=== PATIENT | female | born 1950 | race Caucasian/White ===

== ENCOUNTER 2023-01-09 04:55 | Inpatient (IN) ==
[2023-01-03 13:04] LABS: Basophils # (Auto) 0.05 K/mcL (0.00-0.30); Eosinophils # (Auto) 0.15 K/mcL (0.00-0.70); Eosinophils % (Auto) 2.9 % (0.0-7.0); Hematocrit 39.3 % (34.1-44.9); Hemoglobin 12.9 g/dL (11.2-15.7); Lymphocytes # (Auto) 1.59 K/mcL (1.50-4.80); Lymphocytes % (Auto) 31.2 % (15.5-49.0); Mean Cell Volume 95.2 fL (80.0-100.0); Mean Corpuscular HGB Conc 32.8 g/dL (31.0-36.0); Mean Platelet Volume 9.3 fL (8.8-12.5); Monocytes # (Auto) 0.32 K/mcL (0.10-0.90); Monocytes % (Auto) 6.3 % (1.0-12.0); Neutrophils % (Auto) 58.4 % (38.0-78.0); Platelet Count 350 K/mcL (140-440); RBC 4.13 M/mcL (3.59-5.38); Red Cell Distribution Width 11.6 % (11.5-14.5); WBC 5.1 K/mcL (4.5-11.0)
[2023-01-03 13:24] LABS: ALT/SGPT 17 U/L (<40); AST/SGOT 10 U/L (<32); Albumin 4.6 gm/dL (3.2-5.2); Albumin/Globulin Ratio 2.1 (1.0-2.3); Alkaline Phosphatase 70 U/L (39-117); Bilirubin,Total 0.2 mg/dL (0.1-1.0); Blood Urea Nitrogen 13 mg/dL (8-23); Calcium 9.5 mg/dL (8.6-10.4); Carbon Dioxide 26 mmol/L (22-30); Chloride 105 mmol/L (96-108); Globulin 2.2 gm/dL (2.2-3.7); Glomerular Filtration Rate 73; Glucose 98 mg/dL (70-105)
[2023-01-03 13:34] LABS: INR 0.9 (0.9-1.1)
[2023-01-03 14:16] LABS: Appearance,Urine CLEAR (Clear); Bilirubin,Urine Negative (Negative); Color,Urine STRAW; Culture Indicated,Urine No; Glucose,Urine (UA) Negative (Negative); Ketones,Urine Negative (Negative); Leukocyte Esterase,Urine 25 /uL (Negative); Nitrate,Urine Negative (Negative); Protein,Urine Negative (Negative); Specific Gravity,Urine 1.006 (1.000-1.035); Urine Blood Negative (Negative); Urine RBC < 1 /hpf (0-3); Urine Squamous Epithelial Cell < 1 /hpf (0-4); Urine WBC 2 /hpf (0-4); Urobilinogen,Urine Negative
--- NOTE | 2023-01-05 06:40 | EKG ---
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
[2023-01-09] MEDS ORDERED: IPRATROPIUM/ALBUTEROL 3 ML AMPUL.NEB NEB PRN ×2 (05:00→11:50)
[2023-01-09] MEDS ORDERED: SCOPOLAMINE 1 PATCH PATCH TOPICAL PRN (05:00)
[2023-01-09] MEDS ORDERED: ceFAZolin 2 GM in DEXTROSE 5% IN WATER 50 ML IV SCH (06:00)
[2023-01-09] MEDS ORDERED: 0.9 % SODIUM CHLORIDE 250 ML IV SCH (06:45)
[2023-01-09] MEDS ORDERED: TRANEXAMIC ACID 1,000 MG/10 ML VIAL IV ONE (06:46)
[2023-01-09] MEDS ORDERED: GELATIN SPONGE,ABSORBABLE 1 EACH SPONGE TOPICAL ONE (07:30)
[2023-01-09] MEDS ORDERED: THROMBIN (BOVINE) 5,000 UNIT VIAL TOPICAL ONE ×2 (07:30→11:43)
[2023-01-09] MEDS ORDERED: KETAMINE 50 MG/ML Syringe (ANEST) IV ONE (07:36)
[2023-01-09] MEDS ORDERED: SUCCINYLCHOLINE 20 MG/ML ML IV ONE (07:36)
[2023-01-09] MEDS ORDERED: PROPOFOL 200 MG/20 ML VIAL IV ONE (07:36)
[2023-01-09] MEDS ORDERED: LIDOCAINE HCL/PF 100 MG/5 ML SYRINGE IV ONE (07:36)
[2023-01-09] MEDS ORDERED: DEXAMETHASONE 10 MG/ML VIAL ONE (07:36)
[2023-01-09] MEDS ORDERED: PHENYLephrine 1 MG/10 ML SYRINGE (ANEST) ONE (07:36)
[2023-01-09] MEDS ORDERED: HYDROmorphone 1 MG/ML SYRINGE ONE (07:36)
[2023-01-09] MEDS ORDERED: GLYCOPYRROLATE 0.2 MG/ML VIAL IV ONE (07:36)
[2023-01-09] MEDS ORDERED: ePHEDrine 50 MG/5 ML SYRINGE (ANEST) IV ONE (07:36)
[2023-01-09] MEDS ORDERED: MAGNESIUM SULFATE 2 GM/50 ML BAG IV ONE (07:36)
[2023-01-09] MEDS ORDERED: fentaNYL 100 MCG/2 ML VIAL IV ONE (07:36)
[2023-01-09] MEDS ORDERED: TRANEXAMIC ACID 1,000 MG/10 ML VIAL ONE (07:36)
[2023-01-09] MEDS ORDERED: diphenhydrAMINE 50 MG/ML VIAL IV PRN (11:50)
[2023-01-09] MEDS ORDERED: ONDANSETRON 4 MG/2 ML VIAL IV PRN (11:50)
[2023-01-09] MEDS ORDERED: METHOCARBAMOL 1,000 MG/10 ML VIAL IV PRN ×2 (11:50→12:14)
[2023-01-09] MEDS ORDERED: LACTATED RINGERS 250 ML IV PRN (11:50)
[2023-01-09] MEDS ORDERED: PROMETHAZINE 25 MG/ML VIAL IV PRN (11:50)
[2023-01-09] MEDS ORDERED: MEPERIDINE 25 MG/ML VIAL IV PRN (11:50)
[2023-01-09] MEDS ORDERED: NALOXONE HCL 0.4 MG/ML VIAL IV PRN (11:50)
[2023-01-09] MEDS ORDERED: ACETAMINOPHEN 1,000 MG/100 ML BAG IV ONE (11:50)
[2023-01-09] MEDS ORDERED: LACTATED RINGERS 1,000 ML IV SCH (12:00)
[2023-01-09] MEDS ORDERED: BUPIVACAINE 0.25% 50 ML VIAL IJ ONE (12:14)
[2023-01-09] MEDS ORDERED: HYDROcodone/APAP (PP) 7.5/325MG TABLET (#4) PO PRN (12:18)
[2023-01-09] MEDS: fentaNYL 100 MCG/2 ML VIAL IV PRN ×6 (13:17→14:04)
[2023-01-09] MEDS ORDERED: HYDROmorphone 0.5 MG/0.5 ML SYRINGE IV PRN (14:17)
[2023-01-09] MEDS: ceFAZolin 1 GM VIAL IV SCH ×2 (15:37→22:25)
[2023-01-09] MEDS: 0.9 % SODIUM CHLORIDE 1,000 ML IV SCH (15:38)
[2023-01-09] MEDS: 0.9 % SODIUM CHLORIDE 10 ML SYRINGE IV SCH ×2 (16:24→20:49)
[2023-01-09] MEDS: HYDROmorphone 1 MG/ML SYRINGE IV PRN ×2 (16:43→20:37)
[2023-01-09] MEDS: HYDROCODONE/APAP 7.5/325MG TABLET PO PRN (19:13)
[2023-01-09] MEDS: traZODone HCL 150 MG TABLET PO SCH (20:38)
[2023-01-09] MEDS: VENLAFAXINE 75 MG TABLET PO SCH (20:38)
[2023-01-10] MEDS: HYDROCODONE/APAP 7.5/325MG TABLET PO PRN ×6 (01:25→22:00)
[2023-01-10] MEDS: 0.9 % SODIUM CHLORIDE 1,000 ML IV SCH ×4 (01:26→20:21)
--- NOTE | 2023-01-10 01:59 | XRay Report ---
CLINICAL INFORMATION: fusion COMPARISON: None. FINDINGS: Multiple digital images are submitted from the OR which show L4-5 and L5-S1 fusion provided by interbody grafts pedicle screws. Alignment in the final image appears anatomic. Total fluoroscopy time 0.4 minutes. IMPRESSION: Five L5-S1 fusion. Total fluoroscopy time 0.4 minutes Interpreted and Authenticated by: Demian Diehl 01/10/23
[2023-01-10] MEDS: 0.9 % SODIUM CHLORIDE 10 ML SYRINGE IV SCH ×3 (06:32→21:37)
[2023-01-10] MEDS: HYDROmorphone 1 MG/ML SYRINGE IV PRN ×3 (07:29→19:38)
[2023-01-10] MEDS ORDERED: TRANEXAMIC ACID 1,000 MG/10 ML VIAL IV SCH (07:40)
--- NOTE | 2023-01-10 07:43 | General Surgery Progress Note ---
SUBJECTIVE Subjective Patient information: Note initiated : 01/10/23 at 7:41 am Service Date, if different from initiated Date: [] Patient: Janna Jones 72 y/o F admitted on 01/09/23 for L4-5 Extreme Lateral Interbody Fusion with. Chief Complaint: [] Principal diagnosis: spondylolisthesis Constitutional Vitals: Vital Signs Temp Pulse Resp BP Pulse Ox O2 Del Method O2 Flow Rate 98.2 F 67 18 100/62 97 Nasal Cannula 0.5 01/10/23 03:24 01/10/23 04:00 01/10/23 04:00 01/10/23 03:24 01/10/23 04:00 01/10/23 04:00 01/10/23 04:00 Period Temp Pulse Resp BP Sys/Ruiz Pulse Ox O2 Del Method O2 Flow Rate Last 24 Hr 97.0 F-98.4 F 58-91 11-18 64-118/38-75 90-100 Nasal Cannula- Simple Mask 0.5-7 Intake and Output 01/09/23 01/10/23 01/10/23 19:59 03:59 11:59 Intake Total 3900 1820 700 Output Total 1850 2580 Balance 2050 -760 700 Weight 141 lb Intake & Output: Intake & Output 01/09/23 01/10/23 01/10/23 19:59 03:59 11:59 Intake Total 3900 1820 700 Output Total 1850 2580 Balance 2050 -760 700 Weight 141 lb Intake: IV 100 980 Sodium Chloride 0.9% 1,000 ml @ 980 100 mls/hr IV .Q10H [facility] Rx#: [id number] Oral 840 700 IV - Manual Only 3800 Output: Drainage 30 Back EDLLA Drain 30 Urine Catheter Amount 1450 2550 Uretheral (Benson) 400 Estimated Blood Loss 400 Other: Urine Appearance Clear Urine Color Yellow Yellow Uretheral (Benson) Yellow Extremities Exam Extremities exam: Present neurovascular intact A/P Assessment and plan (1) Dural tear: Status: Acute (2) S/P lumbar fusion: Status: Acute Plan status post A and P fusion Mobilize this afternoon Sepsis Sepsis Identified: No Narrative A/P Narrative: mobilize this afternoon Time Spent With Patient Time: Total time spent is greater than 50% in coordination of care (as documented) at patient's floor/unit and/or counseling patient: Initial: Total time with patient: Less than 40 minutes Critical Care Time: No
--- NOTE | 2023-01-10 07:46 | Operative Note ---
DATE OF OPERATION: 01/09/2023 DATE OF PROCEDURE: 01/09/2023 PREOPERATIVE DIAGNOSIS: Instability with facet debris causing radiculopathy, L4-L5, which is above a previous L5-S1 fusion. POSTOPERATIVE DIAGNOSIS: Instability with facet debris causing radiculopathy, L4-L5, which is above a previous L5-S1 fusion. OPERATION PROPOSED: 1. Anterior interbody fusion via lateral retroperitoneal approach with application of structural device interbody space, L4-L5. 2. Removal of instrumentation, L5-S1, exploration of fusion, segmental instrumentation, L4-5, L5- S1, posterior/posterolateral fusion L4-5, L5-S1 and a lumbar decompression. OPERATION PERFORMED: Same. It should be noted that there was a repair of durotomy. SURGEON: Los Michel M.D. HEALTH TECHNICIAN: Daisy Calixto PA-C. This providers expertise and technical skill were required throughout the case. The LEANA assisted with preoperative coordination, intraoperative retraction, wound closure, and dressing and splint application, as well as postoperative documentation and care coordination. INDICATIONS: This is a lady who has had ongoing radiculopathy. She has instability at the L4-L5 level, which is above a previous fusion. We have elected to proceed with an anterior interbody fusion with posterior decompression and fusion. DESCRIPTION OF PROCEDURE: Informed consent was obtained. The patient was taken to the operating room, provided with appropriate anesthetic and prophylactic antibiotics. She was carefully positioned. I made a transverse incision centered over the L4-5 disk space. I advanced the end of the retroperitoneum, advanced through the psoas using an EMG monitor trocar. I sequentially dilated and placed a self-retaining retractor. The disc was incised. I extensively curetted the disc space and debrided down to subchondral bone. I trialed a variety of components, selected a size 12 x 50 x 22 cage from [employer]. This was filled with morselized bone graft and impacted into the site prepared for it. The patient was turned to the prone position. A midline incision was made. I dissected down to expose spinous process and lamina of L4 through S1. I turned laterally, exposed hardware. This was debrided of soft tissue. The hardware locking caps were removed. I removed the brenda. I curetted the fusion and it was solid. I then placed pedicle screws at L4 and I placed a brenda L4 through S1. There was some of the dura that was eroded by the facet motion and a small area where it appeared CSF was emanating. This was oversewn with a 4-0 silk and I placed Tisseel. I closed over a deep drain with 0 Vicryl in interrupted fashion, running Stratafix, 2-0 inverted deep dermal and running subcuticular. Procedure was tolerated well. No complications. ESTIMATED BLOOD LOSS: 250 mL. GDD:damon Job ID: [id number] Doc ID: [id number] Los Michel MD
[2023-01-10] MEDS: VENLAFAXINE 75 MG TABLET PO SCH ×2 (08:46→21:37)
[2023-01-10] MEDS: LEVOTHYROXINE 100 MCG TABLET PO SCH (08:46)
[2023-01-10] MEDS: LISINOPRIL 20 MG TABLET PO SCH (09:33)
[2023-01-10] MEDS ORDERED: ONDANSETRON 4 MG/2 ML VIAL IV PRN (13:28)
[2023-01-10] MEDS ORDERED: METOCLOPRAMIDE 10 MG/2 ML VIAL IV PRN (13:34)
[2023-01-10] MEDS ORDERED: SCOPOLAMINE 1 PATCH PATCH TOPICAL ONE (13:38)
[2023-01-10] MEDS ORDERED: PROMETHAZINE 25 MG/ML VIAL IV PRN (13:40)
[2023-01-10] MEDS: traZODone HCL 150 MG TABLET PO SCH (22:01)
[2023-01-11] MEDS: HYDROCODONE/APAP 7.5/325MG TABLET PO PRN ×6 (03:30→20:55)
[2023-01-11] MEDS: 0.9 % SODIUM CHLORIDE 1,000 ML IV SCH ×3 (04:02→18:47)
[2023-01-11] MEDS: 0.9 % SODIUM CHLORIDE 10 ML SYRINGE IV SCH ×4 (05:30→20:56)
--- NOTE | 2023-01-11 07:19 | Orthopedic Progress Note ---
SUBJECTIVE Subjective Patient information: Note initiated : 01/11/23 at 7:15 am Service Date, if different from initiated Date: [] Patient: Janna Jones 72 y/o F admitted on 01/09/23 for L4-5 Extreme Lateral Interbody Fusion with. Chief Complaint: [S/p lumbar decompression and fusion] Patient is progressing and has now ambulated some. She complains of post- operative low back pain but otherwise denies any new onset lower extremity weakness/paresthesias or postural headache when upright. Principal diagnosis: spondylolisthesis Constitutional Vitals: Vital Signs Temp Pulse Resp BP Pulse Ox O2 Del Method O2 Flow Rate 99.1 F H 67 16 91/53 95 Non-Rebreather Mask 0.5 01/11/23 03:20 01/11/23 06:00 01/11/23 06:00 01/11/23 04:16 01/11/23 06:00 01/11/23 06:00 01/11/23 06:00 Period Temp Pulse Resp BP Sys/Ruiz Pulse Ox O2 Del Method O2 Flow Rate Last 24 Hr 97.7 F-99.1 F 67-86 14-20 91-134/53-72 91-97 Nasal Cannula- Room Air 0.5-2 Intake and Output 01/10/23 01/11/23 01/11/23 19:59 03:59 11:59 Intake Total 600 1800 Output Total 2955 615 Balance -2355 1185 Weight 139 lb 1.6 oz Intake & Output: Intake & Output 01/10/23 01/11/23 01/11/23 19:59 03:59 11:59 Intake Total 600 1800 Output Total 2955 615 Balance -2355 1185 Weight 139 lb 1.6 oz Intake: IV 1000 Sodium Chloride 0.9% 1,000 ml @ 1000 100 mls/hr IV .Q10H [facility] Rx#: [id number] Oral 600 800 Output: Drainage 60 15 Back DELLA Drain 60 15 Drainage 45 Back DELLA Drain 45 Urine Catheter Amount 2850 600 Other: Urine Appearance Clear Clear Uretheral (Benson) Clear Urine Color Yellow Yellow Uretheral (Benson) Yellow Urine Odor Strong Head Head exam: Present atraumatic, normal inspection and normocephalic Back Exam Back exam: Present tenderness (surgical incision) Additional comments: Surgical dressing is clean, dry, and intact. Neurological Exam Neurological exam: Present alert and oriented X3 Psychiatric Psychiatric exam: Present normal affect OBJ DATA Labs 01/03/23 10:30 01/03/23 10:31 Meds: Medications Hydrocodone Bitart/Acetaminophen (Hydrocodone/Apap 7.5/325mg Tablet) 1 - 2 tab PO Q4HP PRN; Protocol PRN Reason: Per Pain Protocol Last Admin: 01/11/23 03:30 Dose: 2 tab Al Hydrox/Mg Hydrox/Simethicone (Mag Hydrox/Al Hydrox/Simeth 30 Ml Oral.Susp) 30 ml PO Q6HP PRN PRN Reason: Dyspepsia Hydromorphone HCl (Hydromorphone 1 Mg/Ml Syringe) 0 mg IV Q2HP PRN; Protocol PRN Reason: Per Pain Protocol Last Admin: 01/10/23 19:38 Dose: 1 mg Sodium Chloride (Sodium Chloride 0.9%) 1,000 mls @ 100 mls/hr IV .Q10H [facility] Last Admin: 01/11/23 04:02 Dose: Not Given Levothyroxine Sodium (Levothyroxine 100 Mcg Tablet) 100 mcg PO QAM [facility] Last Admin: 01/10/23 08:46 Dose: 100 mcg Lisinopril (Lisinopril 20 Mg Tablet) 20 mg PO DAILY [facility] Last Admin: 01/10/23 09:33 Dose: Not Given Methocarbamol (Methocarbamol 1,000 Mg/10 Ml Vial) 750 mg IV Q6HP PRN PRN Reason: Muscle Spasm Metoclopramide HCl (Metoclopramide 10 Mg/2 Ml Vial) 10 mg IV Q6HP PRN PRN Reason: Nausea And Vomiting Ondansetron HCl (Ondansetron 4 Mg/2 Ml Vial) 4 mg IV Q4HP PRN PRN Reason: Nausea And Vomiting Last Admin: 01/10/23 13:52 Dose: 4 mg Promethazine HCl (Promethazine 25 Mg/Ml Vial) 12.5 mg IV Q6HP PRN PRN Reason: Nausea And Vomiting Last Admin: 01/10/23 17:35 Dose: 12.5 mg Sodium Chloride (0.9 % Sodium Chloride 10 Ml Syringe) 10 ml IV Q8 [facility] Last Admin: 01/11/23 05:30 Dose: 10 ml Trazodone HCl (Trazodone Hcl 150 Mg Tablet) 150 mg PO HS [facility] Last Admin: 01/10/23 22:01 Dose: 150 mg Venlafaxine HCl (Venlafaxine 75 Mg Tablet) 75 mg PO BID [facility] Last Admin: 01/10/23 21:37 Dose: 75 mg A/P Assessment and plan (1) S/P lumbar fusion: Assessment and plan: Mobilize today with PT. Possible discharge to home this evening. March d/c drain prior to discharge. F/u with [facility] in 2 weeks. Status: Acute Time Spent With Patient Time: Total time spent is greater than 50% in coordination of care (as documented) at patient's floor/unit and/or counseling patient:
[2023-01-11] MEDS: VENLAFAXINE 75 MG TABLET PO SCH ×2 (09:19→20:55)
[2023-01-11] MEDS: LEVOTHYROXINE 100 MCG TABLET PO SCH (09:19)
[2023-01-11] MEDS ORDERED: BUTALB/ACETAMINOPHEN/CAFFEINE 1 TABLET PO ONE (11:14)
[2023-01-11] MEDS: LISINOPRIL 20 MG TABLET PO SCH (11:57)
[2023-01-11] MEDS: MAG HYDROX/AL HYDROX/SIMETH 30 ML ORAL.SUSP PO PRN (15:59)
[2023-01-11] MEDS: BUTALB/ACETAMINOPHEN/CAFFEINE 1 TABLET PO PRN (17:06)
[2023-01-11] MEDS: HYDROmorphone 1 MG/ML SYRINGE IV PRN (19:01)
[2023-01-11] MEDS: traZODone HCL 150 MG TABLET PO SCH (20:55)
[2023-01-12] MEDS: 0.9 % SODIUM CHLORIDE 1,000 ML IV SCH ×3 (00:28→10:14)
[2023-01-12] MEDS: HYDROCODONE/APAP 7.5/325MG TABLET PO PRN ×3 (01:58→13:15)
[2023-01-12] MEDS: 0.9 % SODIUM CHLORIDE 10 ML SYRINGE IV SCH (05:00)
[2023-01-12] MEDS: BUTALB/ACETAMINOPHEN/CAFFEINE 1 TABLET PO PRN ×2 (05:48→10:33)
[2023-01-12] MEDS: HYDROmorphone 1 MG/ML SYRINGE IV PRN (06:26)
[2023-01-12] MEDS ORDERED: KETOROLAC 30 MG/ML VIAL IV ONE (07:23)
[2023-01-12] MEDS ORDERED: cefTRIAXone 1 GM VIAL IV ONE (07:23)
--- NOTE | 2023-01-12 07:32 | General Surgery Progress Note ---
SUBJECTIVE Subjective Patient information: Note initiated : 01/12/23 at 7:29 am Service Date, if different from initiated Date: [] Patient: Janna Jones 72 y/o F admitted on 01/09/23 for L4-5 Extreme Lateral Interbody Fusion with. Chief Complaint: [] Principal diagnosis: spondylolisthesis Constitutional Vitals: Vital Signs Temp Pulse Resp BP Pulse Ox O2 Del Method O2 Flow Rate 98.4 F 67 16 93/65 95 Room Air 1 01/12/23 03:45 01/12/23 04:03 01/12/23 04:03 01/12/23 03:45 01/12/23 05:50 01/12/23 05:50 01/12/23 04:03 Period Temp Pulse Resp BP Sys/Ruiz Pulse Ox O2 Del Method O2 Flow Rate Last 24 Hr 98.2 F-99.1 F 67-76 14-20 93-117/59-67 91-95 Non-Rebreather Mask-Simple Mask 0.5-1 Intake and Output 01/11/23 01/12/23 01/12/23 19:59 03:59 11:59 Intake Total 1317 0 2000 Output Total 655 725 600 Balance 662 -725 1400 Weight 139 lb 14.4 oz Intake & Output: Intake & Output 01/11/23 01/12/23 01/12/23 19:59 03:59 11:59 Intake Total 1317 0 2000 Output Total 655 725 600 Balance 662 -725 1400 Weight 139 lb 14.4 oz Intake: Nourishment/Supplement quantity 237 (ml) IV 2000 Sodium Chloride 0.9% 1,000 ml @ 1000 100 mls/hr IV .Q10H [facility] Rx#: [id number] Lactated Ringers 1,000 ml @ 20 1000 mls/hr IV .Q24H [facility] Rx#: [id number] Oral 1080 0 Output: Drainage 5 Back DELLA Drain 5 Urine Catheter Amount 400 Void Amount 250 725 600 Other: Meal Dinner Percent of Meal Consumed 100% Feeding Ability Assist with Tray Set Up Nourishment/Supplement name Ensure plus Urine Appearance Clear Clear Clear Urine Color Yellow Yellow Yellow Pale Urine Odor Normal # Voids 1 Extremities Exam Extremities exam: Present neurovascular intact Additional findings Additional findings: incisions clean and dry no erythema, no drainage A/P Assessment and plan (1) S/P lumbar fusion: Status: Acute (2) Dural tear: Status: Acute Plan dc to home Time Spent With Patient Time: Total time spent is greater than 50% in coordination of care (as documented) at patient's floor/unit and/or counseling patient: Initial: Total time with patient: Less than 40 minutes Critical Care Time: No
[2023-01-12] MEDS: LISINOPRIL 20 MG TABLET PO SCH (07:55)
[2023-01-12] MEDS: VENLAFAXINE 75 MG TABLET PO SCH (08:09)
[2023-01-12] MEDS: LEVOTHYROXINE 100 MCG TABLET PO SCH (08:09)
[2023-01-12] MEDS: MAG HYDROX/AL HYDROX/SIMETH 30 ML ORAL.SUSP PO PRN (09:09)
== END 2023-01-12 13:20 | disposition home or self-care (01) | DRG 454 ==
LOC: MEDSUR 04:55
PROVIDERS: ADMIT Orthopaedic Surgery Orthopaedic Surgery of the Spine; ATTEND Orthopaedic Surgery Orthopaedic Surgery of the Spine

== ENCOUNTER 2023-10-21 07:04 | Inpatient (IN) ==
[2023-10-21] MEDS ORDERED: IOPAMIDOL 100 ML BOTTLE IV ONE (07:05)
[2023-10-21] MEDS ORDERED: LACTATED RINGERS 1,000 ML IV ONE ×2 (07:24→13:39)
[2023-10-21] MEDS ORDERED: ONDANSETRON 4 MG/2 ML VIAL IV ONE ×3 (07:24→13:39)
[2023-10-21] MEDS ORDERED: KETOROLAC 15 MG/ML VIAL IV ONE (07:26)
[2023-10-21 08:06] LABS: Basophils # (Auto) 0.01 K/mcL (0.00-0.30); Basophils % (Auto) 0.2 % (0.0-2.0); Eosinophils # (Auto) 0.04 K/mcL (0.00-0.70); Eosinophils % (Auto) 0.7 % (0.0-7.0); Hematocrit 40.1 % (34.1-44.9); Hemoglobin 12.7 g/dL (11.2-15.7); Lymphocytes # (Auto) 0.08 K/mcL (1.50-4.80); Lymphocytes % (Auto) 1.4 % (15.5-49.0); Mean Cell Volume 94.4 fL (80.0-100.0); Mean Corpuscular HGB Conc 31.7 g/dL (31.0-36.0); Mean Platelet Volume 9.4 fL (8.8-12.5); Monocytes # (Auto) 0.15 K/mcL (0.10-0.90); Monocytes % (Auto) 2.7 % (1.0-12.0); Neutrophils % (Auto) 94.6 % (38.0-78.0); Platelet Count 217 K/mcL (140-440); RBC 4.25 M/mcL (3.59-5.38); Red Cell Distribution Width 12.8 % (11.5-14.5); WBC 5.6 K/mcL (4.5-11.0)
[2023-10-21 08:29] LABS: ALT/SGPT 16 U/L (<40); AST/SGOT 17 U/L (<32); Alkaline Phosphatase 78 U/L (39-117); Bilirubin,Direct < 0.2 mg/dL (0-0.3); Bilirubin,Total 0.3 mg/dL (0.1-1.0); Globulin 1.7 gm/dL (2.2-3.7)
[2023-10-21] MEDS ORDERED: KETOROLAC 30 MG/ML VIAL IV ONE (10:10)
[2023-10-21] MEDS ORDERED: PROMETHAZINE 25 MG/ML VIAL IV ONE (10:13)
[2023-10-21 10:40] LABS: Appearance,Urine CLEAR (Clear); Bilirubin,Urine Negative (Negative); Color,Urine YELLOW; Culture Indicated,Urine No; Glucose,Urine (UA) Negative (Negative); Ketones,Urine Negative (Negative); Leukocyte Esterase,Urine Negative /uL (Negative); Nitrate,Urine Negative (Negative); Protein,Urine Negative (Negative); Specific Gravity,Urine 1.019 (1.000-1.035); Urine Blood Negative (Negative); Urobilinogen,Urine Negative
[2023-10-21] MEDS ORDERED: ACETAMINOPHEN 325 MG TABLET PO ONE (11:32)
[2023-10-21] MEDS ORDERED: PANTOPRAZOLE 40 MG VIAL IV ONE (13:38)
[2023-10-21] MEDS ORDERED: MAG HYDROX/AL HYDROX/SIMETH 30 ML ORAL.SUSP PO ONE (13:38)
[2023-10-21 14:17] LABS: POC Calcium, Ionized 1.12 (1.16-1.32); POC Creatinine 0.7 (0.6-1.2); POC Potassium 3.7 (3.3-5.1)
[2023-10-21] MEDS ORDERED: diphenhydrAMINE 50 MG/ML VIAL IV ONE (16:20)
[2023-10-21] MEDS ORDERED: METOCLOPRAMIDE 10 MG/2 ML VIAL IV ONE (16:20)
[2023-10-21] MEDS ORDERED: LORazepam 2 MG/ML VIAL IV ONE (16:52)
[2023-10-21] MEDS ORDERED: HYDROmorphone 1 MG/ML SYRINGE IV ONE (16:52)
[2023-10-21] MEDS ORDERED: POTASSIUM CHLORIDE 40 MEQ in DEXTROSE 5% IN WATER 500 ML IV PRN (19:17)
[2023-10-21] MEDS ORDERED: PROMETHAZINE 25 MG/ML VIAL IV PRN (19:17)
[2023-10-21] MEDS ORDERED: POTASSIUM CHLORIDE 20 MEQ TABLET PO PRN ×2 (19:17)
[2023-10-21] MEDS ORDERED: ACETAMINOPHEN 325 MG TABLET PO PRN (19:17)
[2023-10-21] MEDS ORDERED: ONDANSETRON 4 MG/2 ML VIAL IV PRN (19:17)
[2023-10-21] MEDS ORDERED: MAGNESIUM SULFATE 2 GM/50 ML BAG IV PRN (19:17)
[2023-10-21] MEDS ORDERED: LORazepam 2 MG/ML VIAL IV PRN (19:17)
[2023-10-21] MEDS ORDERED: IPRATROPIUM/ALBUTEROL 3 ML AMPUL.NEB NEB PRN (19:17)
[2023-10-21] MEDS ORDERED: PROCHLORPERAZINE 10 MG/2 ML VIAL IV PRN (19:17)
[2023-10-21] MEDS ORDERED: diphenhydrAMINE 50 MG/ML VIAL IV PRN (19:17)
[2023-10-21] MEDS: 0.9 % SODIUM CHLORIDE 1,000 ML IV SCH (20:27)
[2023-10-21] MEDS: 0.9 % SODIUM CHLORIDE 10 ML SYRINGE IV SCH (20:28)
[2023-10-21] MEDS: HYDROcodone/APAP 5/325MG TABLET PO PRN (22:14)
[2023-10-22] MEDS: BUTALB/ACETAMINOPHEN/CAFFEINE 1 TABLET PO PRN ×2 (00:45→08:02)
[2023-10-22] MEDS: HYDROcodone/APAP 5/325MG TABLET PO PRN ×2 (02:47→06:42)
[2023-10-22] MEDS: 0.9 % SODIUM CHLORIDE 10 ML SYRINGE IV SCH ×3 (05:11→21:46)
[2023-10-22 07:25] LABS: ALT/SGPT 62 U/L (<40); AST/SGOT 51 U/L (<32); Albumin 2.9 gm/dL (3.2-5.2); Albumin/Globulin Ratio 1.7 (1.0-2.3); Alkaline Phosphatase 59 U/L (39-117); Bilirubin,Direct < 0.2 mg/dL (0-0.3); Bilirubin,Total 0.5 mg/dL (0.1-1.0); Blood Urea Nitrogen 21 mg/dL (8-23); Calcium 7.6 mg/dL (8.6-10.4); Carbon Dioxide 25 mmol/L (22-30); Chloride 106 mmol/L (96-108); Globulin 1.7 gm/dL (2.2-3.7); Glomerular Filtration Rate 73; Glucose 98 mg/dL (70-105); Lactate Dehydrogenase 186 U/L (135-225); Phosphorous 2.3 mg/dL (2.5-4.5); Triglycerides 68 mg/dL (<150)
[2023-10-22] MEDS ORDERED: DIAZEPAM 10 MG/2 ML SYRINGE IV PRN (08:27)
[2023-10-22] MEDS: VENLAFAXINE 75 MG TABLET PO SCH ×2 (09:20→20:17)
[2023-10-22] MEDS: LORazepam 1 MG TABLET PO SCH ×2 (09:20→20:17)
[2023-10-22] MEDS: LEVOTHYROXINE 100 MCG TABLET PO SCH (09:20)
[2023-10-22] MEDS: 0.9 % SODIUM CHLORIDE 1,000 ML IV SCH (09:21)
[2023-10-22] MEDS ORDERED: SUMAtriptan SUCCINATE 50 MG TABLET PO ONE ×2 (09:38→13:44)
[2023-10-22 10:10] LABS: Hematocrit 35.5 % (34.1-44.9); Hemoglobin 11.5 g/dL (11.2-15.7); Mean Cell Volume 93.4 fL (80.0-100.0); Mean Corpuscular HGB Conc 32.4 g/dL (31.0-36.0); Mean Platelet Volume 9.5 fL (8.8-12.5); Platelet Count 184 K/mcL (140-440); Red Cell Distribution Width 13.1 % (11.5-14.5); WBC 2.7 K/mcL (4.5-11.0)
[2023-10-22 11:00] LABS: Band Neutrophils % 54 % (0-10); Eosinophils % (Manual) 1 % (0-7); Lymphocytes % 13 % (15-49); Metamyelocytes % 1 %; Monocytes % (Manual) 5 % (1-12); Platelet Estimate NORMAL (Normal); RBC Morphology NORMAL (Normal); Reactive Lymphocytes 1 % (0-2); Segmented Neutrophils % 25 % (38-78)
[2023-10-22] MEDS: HYDROCODONE/APAP 7.5/325MG TABLET PO PRN ×3 (11:09→21:52)
[2023-10-22] MEDS: BISMUTH SUBSALICYLATE 15 ML ORAL.SUSP PO PRN (12:06)
[2023-10-22] MEDS: metroNIDAZOLE 500 MG/100 ML BAG IV SCH ×2 (13:20→21:45)
[2023-10-22] MEDS: cefTRIAXone 2 GM in DEXTROSE 5% IN WATER 50 ML IV SCH (13:27)
[2023-10-22] MEDS ORDERED: SUMAtriptan SUCCINATE 50 MG TABLET PO PRN (14:13)
[2023-10-22] MEDS: CALCIUM CARBONATE 500 MG TAB.CHEW CHEWED PRN (16:24)
[2023-10-22] MEDS: traZODone HCL 150 MG TABLET PO SCH (20:17)
[2023-10-23] MEDS: BUTALB/ACETAMINOPHEN/CAFFEINE 1 TABLET PO PRN (00:57)
[2023-10-23] MEDS: HYDROCODONE/APAP 7.5/325MG TABLET PO PRN ×3 (04:52→18:36)
[2023-10-23] MEDS: metroNIDAZOLE 500 MG/100 ML BAG IV SCH ×3 (05:21→21:34)
[2023-10-23] MEDS: 0.9 % SODIUM CHLORIDE 10 ML SYRINGE IV SCH ×3 (05:48→20:30)
[2023-10-23 06:32] LABS: Hematocrit 34.1 % (34.1-44.9); Hemoglobin 10.9 g/dL (11.2-15.7); Mean Cell Volume 93.2 fL (80.0-100.0); Mean Platelet Volume 9.5 fL (8.8-12.5); Platelet Count 152 K/mcL (140-440); RBC 3.66 M/mcL (3.59-5.38); WBC 2.8 K/mcL (4.5-11.0)
[2023-10-23 07:04] LABS: ALT/SGPT 46 U/L (<40); AST/SGOT 21 U/L (<32); Albumin 2.7 gm/dL (3.2-5.2); Albumin/Globulin Ratio 1.4 (1.0-2.3); Alkaline Phosphatase 61 U/L (39-117); Bilirubin,Direct < 0.2 mg/dL (0-0.3); Bilirubin,Total 0.2 mg/dL (0.1-1.0); Blood Urea Nitrogen 10 mg/dL (8-23); Calcium 8.1 mg/dL (8.6-10.4); Carbon Dioxide 25 mmol/L (22-30); Chloride 106 mmol/L (96-108); Glomerular Filtration Rate 73; Glucose 84 mg/dL (70-105); Lactate Dehydrogenase 173 U/L (135-225); Phosphorous 2.7 mg/dL (2.5-4.5); Triglycerides 96 mg/dL (<150)
[2023-10-23] MEDS: CALCIUM CARBONATE 500 MG TAB.CHEW CHEWED PRN ×3 (07:53→18:37)
[2023-10-23 08:22] LABS: Band Neutrophils % 40 % (0-10); Eosinophils % (Manual) 2 % (0-7); Lymphocytes % 19 % (15-49); Monocytes % (Manual) 8 % (1-12); Platelet Estimate NORMAL (Normal); RBC Morphology NORMAL (Normal); Reactive Lymphocytes 2 % (0-2); Segmented Neutrophils % 29 % (38-78)
[2023-10-23] MEDS ORDERED: DIAZEPAM 10 MG/2 ML SYRINGE IV PRN (08:50)
[2023-10-23] MEDS ORDERED: METHOCARBAMOL 1,000 MG/10 ML VIAL IV ONE (08:50)
[2023-10-23] MEDS: VENLAFAXINE 75 MG TABLET PO SCH ×2 (08:59→15:12)
[2023-10-23] MEDS: LEVOTHYROXINE 100 MCG TABLET PO SCH (09:00)
[2023-10-23] MEDS: cefTRIAXone 2 GM in DEXTROSE 5% IN WATER 50 ML IV SCH (09:05)
[2023-10-23] MEDS: LORazepam 1 MG TABLET PO SCH ×2 (09:05→20:29)
[2023-10-23] MEDS: BISMUTH SUBSALICYLATE 15 ML ORAL.SUSP PO PRN (11:10)
[2023-10-23] MEDS: ENOXAPARIN 40 MG/0.4 ML SYRINGE SQ SCH (11:11)
[2023-10-23] MEDS ORDERED: METHOCARBAMOL 1,000 MG/10 ML VIAL IV PRN (13:00)
[2023-10-23] MEDS: traZODone HCL 150 MG TABLET PO SCH (20:29)
[2023-10-24] MEDS: BUTALB/ACETAMINOPHEN/CAFFEINE 1 TABLET PO PRN (02:12)
[2023-10-24] MEDS: VENLAFAXINE 75 MG TABLET PO SCH (04:04)
[2023-10-24] MEDS: metroNIDAZOLE 500 MG/100 ML BAG IV SCH (05:53)
[2023-10-24] MEDS: 0.9 % SODIUM CHLORIDE 10 ML SYRINGE IV SCH (05:59)
[2023-10-24 06:23] LABS: Hematocrit 33.4 % (34.1-44.9); Hemoglobin 10.7 g/dL (11.2-15.7); Mean Cell Volume 92.3 fL (80.0-100.0); Mean Platelet Volume 9.7 fL (8.8-12.5); Platelet Count 168 K/mcL (140-440); RBC 3.62 M/mcL (3.59-5.38); Red Cell Distribution Width 12.7 % (11.5-14.5); WBC 2.5 K/mcL (4.5-11.0)
[2023-10-24 06:50] LABS: Anion Gap 10.1 (8.0-16.0); Blood Urea Nitrogen 9 mg/dL (8-23); Calcium 8.5 mg/dL (8.6-10.4); Carbon Dioxide 23 mmol/L (22-30); Chloride 105 mmol/L (96-108); Glomerular Filtration Rate 89; Glucose 106 mg/dL (70-105)
[2023-10-24] MEDS: LEVOTHYROXINE 100 MCG TABLET PO SCH (08:32)
[2023-10-24] MEDS: cefTRIAXone 2 GM in DEXTROSE 5% IN WATER 50 ML IV SCH (08:32)
[2023-10-24] MEDS: ENOXAPARIN 40 MG/0.4 ML SYRINGE SQ SCH (08:32)
[2023-10-24] MEDS: LORazepam 1 MG TABLET PO SCH (08:32)
[2023-10-24] MEDS: HYDROCODONE/APAP 7.5/325MG TABLET PO PRN (08:41)
[2023-10-24 08:51] LABS: Band Neutrophils % 16 % (0-10); Eosinophils % (Manual) 7 % (0-7); Lymphocytes % 24 % (15-49); Monocytes % (Manual) 4 % (1-12); Platelet Estimate NORMAL (Normal); RBC Morphology NORMAL (Normal); Reactive Lymphocytes 1 % (0-2); Segmented Neutrophils % 48 % (38-78)
[2023-10-24] MEDS ORDERED: LOPERAMIDE 2 MG CAPSULE PO SCH (09:53)
== END 2023-10-24 12:41 | disposition home or self-care (01) | DRG 866 ==
LOC: ED 07:04 → MEDSUR 07:04
PROVIDERS: ADMIT Internal Medicine; ATTEND Internal Medicine